=== PATIENT | female | born 1945 | race Caucasian/White ===

== ENCOUNTER 2016-03-30 15:43 | Emergency (ER) | payer MEDICARE, OTHER ==
[~2016-03-30] VITALS: Ht 170.2 cm; Wt 75.0 kg
[2016-03-30 15:47] VITALS: BP 133/81; PULSE 94; RESP 16; O2SAT 94
--- NOTE | 2016-03-30 16:02 | ED.REPORT ---
HPI-General Illness Date of Service Mar 30, 2016 ED Provider: Kenn Albright MD Pt is a 70 year old female with a history of CAD, and kidney failure who presents to the ED with concerns for a pain present in her left leg that started a couple of days ago. She reports that the pain is localized around her ;eft ankle and hamstring, she describes this as a cramping, burning pain that she is concerned is related to a possible blood clot. Pt reports that she has had bad myalgia following taking her Zetia medication in the past. She believes these symptoms are similar to the symptoms she has had in the past. She reports scattered numbness around her body, which is present constantly for the past week. Pt reports that her numbness has increased and is associated with full body weakness. She denies any fevers, chills, significant chest pain, shortness of breath, dysuria, hematuria, decreased urination, lateralizing weakness, difficulty swallowing or any other symptoms. Pt reports a resting heart rate of 122 earlier today. No established PCP. Nursing Notes Stated Complaint: POSSIBLE BLOOD CLOT Chief Complaint: General Complaint Nursing Notes Reviewed: Yes Allergies: Coded Allergies: ezetimibe (Verified Allergy, Severe, muscle cramping and spasms, 03/30/16) Dejifoi-Cww-Hji Reductase Inhibitor (Verified Allergy, Unknown, severe muscle spasm and cramping, 03/30/16) adenosine (Verified Allergy, Unknown, quites breathing, 03/30/16) Uncoded Allergies: ALL OPIOIDS (Allergy, Unknown, pt quites breathing, 03/30/16) General Time Seen by MD: 16:01 Chief Complaint Other (Lower Extremity Pain) Hx Obtained From: Patient Arrived By: Walk-in Sudden in Onset?: Yes Onset Occurred: 1 week ago Symptom Duration: Since onset Location: : Leg left Quality: Painful Severity: Current: No pain currently Severity: Maximum: Mild Similar Sx Previous: Yes Past Medical History Past Medical History Notes: Newly establishing medical care in [facility] Past Medical History CAD Kidney failure Smoking History Former Smoker Social History PT EXPRESSES EXTREME AVERSION TO CARE AT [facility] AND WOULD NOT WANT TO BE TRANSFERRED TO [facility] UNDER ANY CIRCUMSTANCES Alcohol Use: "Social" Ambulatory Status Independent Review of Systems Full Review of Systems Constitutional: Reports: Weakness - generalized, Denies: Chills, Fever, Malaise Respiratory: Denies: Non-productive cough, Shortness of breath, Wheezing Cardiovascular: Denies: Chest pain, Syncope GI: Denies: Abdominal pain, Constipation, Diarrhea, Nausea, Vomiting Female: Denies: Dysuria, Flank pain, Urinary frequency, Urinary urgency Musculoskeletal: Reports: Extremity pain, Denies: Back pain, Joint pain, Neck pain Skin: Denies Diaphoresis Neurologic: Denies: Change LOC, Dizziness, Headache, Syncope, Weakness Complete sys rev & neg: except as marked. Physical Exam Vital Signs Vital Signs Date Time Temp Pulse Resp B/P Pulse Ox O2 Delivery O2 Flow Rate FiO2 03/30/16 17:19 85 21 117/57 93 Room Air 03/30/16 15:47 36.4 94 16 133/81 94 Room Air Initial VS: Reviewed Head / Eyes: Atraumatic, Normocephalic, PERRL ENT: Mucous membranes moist, Conjunctiva normal, No scleral icterus Neck: Supple, Non-tender, Full range of motion Respiratory: Breath sounds normal, Clear to auscultation, No respiratory distress Abdomen / GI: Soft, Non-tender, No guarding, No rebound, No distention Skin: Warm, Dry, No cyanosis Psychiatric: Mood/affect normal, Behavior normal, Normal thought content General/Constitutional: Awake, Alert, No acute distress, Well appearing, Well developed, Well nourished, Cooperative Pulses in tact No swelling or erythema about the lower extremities No chords Mild calf tenderness Negative Homans sign No facilal droop Decreased senstation about the left face Motor is in tact in lower extremity, mild light touch sensation decrease Cardiovascular: Heart rate NL, Regular rhythm, No gallop, No rubs Heart Sounds / Murmur: Positive: Systolic murmur present.. (II/ - upper left sternal border) Neurologic: Oriented X3, Speech NL, No motor deficits, No sensory deficits, CN II - XII intact Interpretation & Diagnostics Lab Results Interpretation Result Diagram: 03/30/16 1640 03/30/16 1640 Test 03/30/16 16:40 03/30/16 16:52 White Blood Count 7.7th/mm3 (3.8-10.1) Red Blood Count 4.53mil/mm3 (3.90-5.20) Hemoglobin 12.8g/dL (12.0-15.6) Hematocrit 37.8% (35.0-46.0) Mean Corpuscular Volume 83.4fL (81-100) Mean Corpuscular Hemoglobin 28.3pg (27.0-35.0) Mean Corpuscular Hemoglobin Concent 33.9% (32.0-37.0) Red Cell Distribution Width 14.9% (12.3-15.4) Platelet Count 214bil/L (150-400) Neutrophils (%) (Auto) 57.7% (40-74) Lymphocytes (%) (Auto) 30.5% (14-46) Monocytes (%) (Auto) 8.3% (4-12) Eosinophils (%) (Auto) 2.5% (0-5) Basophils (%) (Auto) 0.5% (0-3) Sodium Level 140mEq/L (134-144) Potassium Level 4.2mEq/L (3.5-5.2) Chloride Level 102mEq/L (97-108) Carbon Dioxide Level 22mmol/L (18-29) Blood Urea Nitrogen 16mg/dL (8-27) Creatinine 0.72mg/dL (0.57-1.00) Estimat Glomerular Filtration Rate 114mL/min (>59) Glucose Level 155mg/dL (60-99) Calcium Level 9.2mg/dL (8.5-10.1) Magnesium Level 1.9mg/dL (1.6-2.6) Total Bilirubin 0.2mg/dL (0.0-1.2) Aspartate Amino Transf (AST/SGOT) 5U/L (0-50) Alanine Aminotransferase (ALT/SGPT) 5U/L (0-32) Alkaline Phosphatase 82U/L (25-165) Total Creatine Kinase 55U/L (21-215) Troponin T < 0.010ug/L (0.0-0.011) Total Protein 6.5g/dL (6.4-8.4) Albumin 4.1g/dL (3.4-5.0) Hold Reyes Top Tube Received (Received) Lab Results Interpretation: Venous Duplex Exam: IMPRESSION: No left lower extremity DVT. Dictated by: Bobby Landis M.D. on 03/30/2016 at 17:39 X-Ray Chest Interpretation Chest Xray Interpretation: IMPRESSION: No acute cardiopulmonary disease. Dictated by: Bobby Landis M.D. on 03/30/2016 at 16:57 View: Portable, 1 view Interpretation / Wet Read by: Interpret - Radiologist CT Head Interpretation IMPRESSION: No acute intracranial abnormalities. Dictated by: Bobby Landis M.D. on 03/30/2016 at 16:59 Interpretation / Wet Read by: Interpret - Radiologist Re-Eval/Medical Decision Source of Hx: Old records Summary of Info: Current Medications: Baby Aspirin Nitroglycerin Tramadol Brilinta Time of Eval: 18:42 Re-Evaluation/Progress Note: Pt is rechecked and informed of her labs and imaging results and the plan to discharge her at this time. She understands and agrees, all questions are addressed. Counseled Regarding: Diagnosis, Lab results, Need for follow-up, When/why to return to ED Discharge & Departure Primary Impression: Paresthesia Additional Impression: Left leg pain Disposition: Home Discharge Condition All VS Reviewed: Yes Condition: Stable Additional Instructions: Emergency Department evaluation included interview, examination, labs, ultrasound of the leg, chest x-ray, ECG, CT brain. No serious medical problems identified today. We looked for evidence of infection, stroke, abnormal blood clotting, metabolic abnormalities. Patient is reassuring. It is felt to be safe. Continue previous home care and follow-up with primary care as planned or sooner if possible. Return to ED for chest pain, shortness of breath or fevers. Scribe Attestation Portions of this note were transcribed by Gayathri Corbin. I, Dr. Albright personally performed the history, physical exam and medical decision-making; I reviewed and confirmed the accuracy of the information in the transcribed note. Signed by: Golden Ribera, 03/30/2016 1855 Kenn Albright MD Mar 30, 2016 16:02 JUNG CORBIN Mar 30, 2016 16:29
[2016-03-30 16:57] LABS: BASOPHILS % (AUTO) 0.5 % (0-3); EOSINOPHILS % (AUTO) 2.5 % (0-5); MONOCYTES % (AUTO) 8.3 % (4-12); Mean Corpuscular Hemoglobin 28.3 pg (27.0-35.0); Mean Corpuscular Volume 83.4 fL (81-100); NEUTROPHILS % (AUTO) 57.7 % (40-74); Platelet Count 214 bil/L (150-400)
--- NOTE | 2016-03-30 16:57 | DRSVH ---
PROCEDURE: X-RAY CHEST ONE VIEW, PORTABLE ([id number]) INDICATIONS: SHORTNESS OF BREATH TECHNIQUE: One view of the chest was acquired. COMPARISON: [facility], , CHEST 1 VIEW, 02/22/2016, 1:21. FINDINGS: Surgical changes and devices: None. Lungs and pleura: No pleural effusions or pneumothorax. Lungs are clear. Mediastinum: Mediastinal contours appear normal. Heart size is normal. Bones and chest wall: No suspicious bony lesions. Overlying soft tissues appear unremarkable. IMPRESSION: No acute cardiopulmonary disease. Dictated by: Bobby Landis M.D. on 03/30/2016 at 16:57 Approved by: Bobby Landis M.D. on 03/30/2016 at 16:57
--- NOTE | 2016-03-30 17:00 | DRSVH ---
PROCEDURE: CT BRAIN WITHOUT CONTRAST ([id number]) INDICATIONS: L side numbness TECHNIQUE: Noncontrast 4.5 mm thick angled axial sections acquired from the foramen magnum to the vertex, with c oronal reformats. COMPARISON: None. FINDINGS: Image quality: Excellent. CSF spaces: Basal cisterns are patent. No extra-axial fluid collections. The ventricles are symmet samir in size and shape. Brain: No intracranial bleeds or masses. There is mild cerebral volume loss for age, with resultant ventricular and sulcal prominence. There are mild periventricular and deep white matter chronic sma ll vessel ischemic changes. There is intracranial internal carotid artery atherosclerosis. Skull and face: Calvarium and visualized facial bones appear intact, without suspicious lesions. Sinuses: Visualized sinuses and mastoids are clear. IMPRESSION: No acute intracranial abnormalities. Dictated by: Bobby Landis M.D. on 03/30/2016 at 16:59 Approved by: Bobby Landis M.D. on 03/30/2016 at 17:00
[2016-03-30 17:19] VITALS: BP 117/57; PULSE 85; RESP 21; O2SAT 93
[2016-03-30 17:21] LABS: Magnesium 1.9 mg/dL (1.6-2.6)
[2016-03-30 17:36] LABS: TROPONIN T < 0.010 ug/L (0.0-0.011)
--- NOTE | 2016-03-30 17:41 | DRSVH ---
PROCEDURE: US VEINOUS LEG DUPLEX UNILATERAL, LEFT INDICATIONS: L leg swelling and pain TECHNIQUE: Real-time imaging, as well as color and pulse Doppler interrogation, were performed of the lower extr emity deep veins from the inguinal ligament to the popliteal fossa. COMPARISON: None. FINDINGS: The deep veins are normally compressible, and free of intraluminal thrombus. Color and pu lse Doppler demonstrate normal phasic intraluminal flow. There is normal augmentation response to di stal compression maneuver. IMPRESSION: No left lower extremity DVT. Dictated by: Bobby Landis M.D. on 03/30/2016 at 17:39 Approved by: Bobby Landis M.D. on 03/30/2016 at 17:39
[2016-08-13] MEDS ORDERED: AFLI2VIA INTRAVI011 (15:29)
[2016-08-13] MEDS ORDERED: ASPI-973 PO (15:29)
[2016-08-13] MEDS ORDERED: VIT1CAPS46 PO (15:29)
== END 2016-03-30 19:26 | disposition home or self-care (01) ==
LOC: SED 15:43
DX: R20.2 Paresthesia of skin (principal); M79.605 Pain in left leg; M62.81 Muscle weakness (generalized); I25.10 Atherosclerotic heart disease of native coronary artery without angina pectoris; Z95.818 Presence of other cardiac implants and grafts; Z87.448 Personal history of other diseases of urinary system; Z87.891 Personal history of nicotine dependence; Z79.82 Long term (current) use of aspirin; Z88.5 Allergy status to narcotic agent; Z88.8 Allergy status to other drugs, medicaments and biological substances

== ENCOUNTER 2016-05-17 15:29 | Emergency (ER) | payer OTHER, MEDICARE ==
[~2016-05-17] VITALS: Ht 172.7 cm; Wt 79.5 kg
[2016-05-17 15:45] VITALS: BP 121/78; PULSE 71; RESP 18; O2SAT 99
--- NOTE | 2016-05-17 16:16 | ED.REPORT ---
HPI-General Illness Date of Service May 17, 2016 ED Provider: Kenn Albright MD The patient is a 70 year old female history of CAD and cardiac stents who presents to the ED due to intermittent chest pain for the past 4 months. Today' s pain is different, she is experiencing sharp pains all over her body and both sides of her chest. Pt reports the pain is getting worse and for longer periods of time. C/o associated generalized weakness, dizziness, and exhaustion. She fell twice yesterday and was unable to push herself back up. Pt is hardly able to sit up by herself in bed. She says she thinks it is reactions to weakness. She was last seen at the ED 03/30/16 for similar symptoms at which time no acute problems were found. Pt denies fevers. She was sent to the ED today from her PCP for lab work. Her PCP is Michelle Galo, she had an appointment last Friday. Nursing Notes Stated Complaint: LAB WORK Chief Complaint: General Complaint Nursing Notes Reviewed: Yes Allergies: Coded Allergies: ezetimibe (Verified Allergy, Severe, muscle cramping and spasms, 05/17/16) Witladl-Ahr-Bhk Reductase Inhibitor (Verified Allergy, Unknown, severe muscle spasm and cramping, 05/17/16) adenosine (Verified Allergy, Unknown, quites breathing, 05/17/16) Uncoded Allergies: ALL OPIOIDS (Allergy, Unknown, pt quites breathing, 03/30/16) General Time Seen by MD: 16:12 Chief Complaint Chest pain Hx Obtained From: Patient Arrived By: Walk-in Sudden in Onset?: Yes Onset Occurred: 5 - 8 hours ago Symptom Duration: Since onset Location: : Chest Severity: Current: Mild Recent Healthcare: Recent doctor visit Similar Sx Previous: Yes Past Medical History Past Medical History Notes: Newly establishing medical care in [facility] Past Medical History CAD Kidney failure Smoking History Former Smoker Social History PT EXPRESSES EXTREME AVERSION TO CARE AT [facility] AND WOULD NOT WANT TO BE TRANSFERRED TO [facility] UNDER ANY CIRCUMSTANCES Alcohol Use: "Social" Ambulatory Status Independent Review of Systems Full Review of Systems Constitutional: Denies: Fever Cardiovascular: Reports: Chest pain Neurologic: Reports: Dizziness, Lightheaded, Problem walking, Weakness Complete sys rev & neg: except as marked. Physical Exam Vital Signs Vital Signs Date Time Temp Pulse Resp B/P Pulse Ox O2 Delivery O2 Flow Rate FiO2 3/17/17 18:52 68 17 139/73 95 Room Air 05/17/16 16:48 72 15 125/72 98 Room Air 05/17/16 15:45 36.6 71 18 121/78 99 Room Air Initial VS: Reviewed Head / Eyes: Atraumatic, Normocephalic, PERRL ENT: Mucous membranes moist, Conjunctiva normal, No scleral icterus Neck: Supple, Non-tender, Full range of motion Respiratory: Breath sounds normal, Clear to auscultation, No respiratory distress Abdomen / GI: Soft, Non-tender, No guarding, No rebound, No distention Extremities: Vascular intact, Neuro intact, No swelling, No tenderness Skin: Warm, Dry, No cyanosis Psychiatric: Mood/affect normal, Behavior normal, Normal thought content General/Constitutional: Awake, Alert, No acute distress, Cooperative Interpretation & Diagnostics Lab Results Interpretation Result Diagram: 05/17/16 1617 05/17/16 1617 Test 05/17/16 16:17 White Blood Count 8.3th/mm3 (3.8-10.1) Red Blood Count 4.91mil/mm3 (3.90-5.20) Hemoglobin 13.8g/dL (12.0-15.6) Hematocrit 41.1% (35.0-46.0) Mean Corpuscular Volume 83.7fL (81-100) Mean Corpuscular Hemoglobin 28.1pg (27.0-35.0) Mean Corpuscular Hemoglobin Concent 33.6% (32.0-37.0) Red Cell Distribution Width 14.5% (12.3-15.4) Platelet Count 209bil/L (150-400) Neutrophils (%) (Auto) 58.3% (40-74) Lymphocytes (%) (Auto) 33.3% (14-46) Monocytes (%) (Auto) 6.8% (4-12) Eosinophils (%) (Auto) 0.8% (0-5) Basophils (%) (Auto) 0.6% (0-3) D-Dimer < 0.5mg/L (<0.50) Sodium Level 138mEq/L (134-144) Potassium Level 4.3mEq/L (3.5-5.2) Chloride Level 101mEq/L (97-108) Carbon Dioxide Level 22mmol/L (18-29) Blood Urea Nitrogen 9mg/dL (8-27) Creatinine 0.81mg/dL (0.57-1.00) Estimat Glomerular Filtration Rate 100mL/min (>59) Glucose Level 106mg/dL (60-99) Calcium Level 9.5mg/dL (8.5-10.1) Magnesium Level 2.0mg/dL (1.6-2.6) Total Bilirubin 0.7mg/dL (0.0-1.2) Aspartate Amino Transf (AST/SGOT) 19U/L (0-50) Alanine Aminotransferase (ALT/SGPT) 12U/L (0-32) Alkaline Phosphatase 69U/L (25-165) Troponin T < 0.010ug/L (0.0-0.011) Total Protein 7.0g/dL (6.4-8.4) Albumin 4.6g/dL (3.4-5.0) Thyroid Stimulating Hormone (TSH) 1.040uIU/mL (0.450-4.500) Hold Reyes Top Tube Received (Received) ECG Interpretation Time: 15:58 Interpreted by: ED physician Normal ECG Interpretation: Normal sinus rhythm (62) X-Ray Chest Interpretation Chest Xray Interpretation: IMPRESSION: No acute process. Dictated by: Nadeem Mcdaniel M.D. on 05/17/2016 at 16:32 Approved by: Nadeem Mcdaniel M.D. on 05/17/2016 at 16:32 View: Portable Interpretation / Wet Read by: Interpret - Radiologist Re-Eval/Medical Decision Time of Eval: 19:19 Patient Status: Pain improved Re-Evaluation/Progress Note: Pt rechecked. Informed pt of normal lab results and chest x-ray. F/U and RTER warnings given. Pt understands and agrees with plan. Counseled Regarding: Diagnosis, Lab results, Need for follow-up, When/why to return to ED Discharge & Departure Primary Impression: Non-cardiac chest pain Disposition: Home Discharge Condition All VS Reviewed: Yes Condition: Stable Additional Instructions: Emergency Department evaluation today included interview, examination, labs, chest x-ray, and ECG. There are no dangerous heart or lung issues that are causing your symptoms. No evidence for pulmonary embolism, abnormal blood clotting, or pneumonia. Make sure you take your aspirin every day. Follow up with your primary care physician for further evaluation. Take an aspirin daily. Return to the Emergency Department for any new or worsening symptoms. Referrals: [facility] Scribe Attestation Portion of this note were transcribed by Aby Pena. I, Dr. Albright, personally performed the history, physical exam, and medical decision-making: I reviewed and confirmed the accuracy for the information in the transcribed note. Signed by: iman Vences, 05/17/16 2000 copies to: [facility] Kenn Albright MD May 17, 2016 16:16 Ayb Pena May 17, 2016 16:28
[2016-05-17 16:27] LABS: BASOPHILS % (AUTO) 0.6 % (0-3); EOSINOPHILS % (AUTO) 0.8 % (0-5); MONOCYTES % (AUTO) 6.8 % (4-12); Mean Corpuscular Hemoglobin 28.1 pg (27.0-35.0); Mean Corpuscular Volume 83.7 fL (81-100); NEUTROPHILS % (AUTO) 58.3 % (40-74); Platelet Count 209 bil/L (150-400)
--- NOTE | 2016-05-17 16:34 | DRSVH ---
PROCEDURE: X-RAY CHEST ONE VIEW, PORTABLE ([id number]) INDICATIONS: CP TECHNIQUE: One view of the chest was acquired. COMPARISON: [facility], CR, XR CHEST 1VW (PORTABLE), 03/30/2016, 16:13. FINDINGS: Surgical changes and devices: None. Lungs and pleura: No pleural effusions or pneumothorax. Lungs are clear. Mediastinum: Mediastinal contours appear normal. Heart size is normal. Bones and chest wall: No suspicious bony lesions. Overlying soft tissues appear unremarkable. IMPRESSION: No acute process. Dictated by: Nadeem Mcdaniel M.D. on 05/17/2016 at 16:32 Approved by: Nadeem Mcdaniel M.D. on 05/17/2016 at 16:32
[2016-05-17 16:46] LABS: TROPONIN T < 0.010 ug/L (0.0-0.011)
[2016-05-17 16:48] VITALS: BP 125/72; PULSE 72; RESP 15; O2SAT 98
[2016-05-17 18:52] VITALS: BP 139/73; PULSE 68; RESP 17; O2SAT 95
[2016-08-13] MEDS ORDERED: ASPI-973 PO (15:29)
[2016-08-13] MEDS ORDERED: VIT1CAPS46 PO (15:29)
[2016-08-13] MEDS ORDERED: AFLI2VIA INTRAVI011 (15:29)
== END 2016-05-17 19:31 | disposition home or self-care (01) ==
LOC: SED 15:29
DX: R07.89 Other chest pain (principal); R53.1 Weakness; R42 Dizziness and giddiness; I25.10 Atherosclerotic heart disease of native coronary artery without angina pectoris; Z87.891 Personal history of nicotine dependence; Z88.8 Allergy status to other drugs, medicaments and biological substances

== ENCOUNTER 2016-08-15 09:48 | Day surgery (SDC) | payer OTHER ==
[~2016-08-15] VITALS: Ht 170.2 cm; Wt 80.3 kg
[~2016-08-15 09:48] MED LIST: 0.9% Sodium Chloride 1,000 ML IV SCH; AFLI2VIA INTRAVI011; ASPI-973 PO; Sodium Chloride LOK Flush 10 mL Syringe IV PRN; VIT1CAPS46 PO; fentaNYL-PF 50 mCg/mL 2 mL Inj IVPUSH PRN
[2016-08-15 09:58] VITALS: BP 122/76; PULSE 77; RESP 14; O2SAT 95
[2016-08-15 11:52] VITALS: BP 110/77; PULSE 75; RESP 14; O2SAT 97
[2016-08-15 12:00] VITALS: BP 109/76; PULSE 66; RESP 16; O2SAT 96
--- NOTE | 2016-08-15 13:53 | ENDO ---
[address] [address] ENDOSCOPY PROCEDURE PATIENT: ANASTASIA MORA : 1945 MR#: [id number] ADMIT: 08/15/2016 JOB ID: [id number] DATE: 08/15/2016 PROCEDURE: Colonoscopy. INDICATION: Patient with a history of colon polyps which were adenomatous. Patient's ASA classification is two. Mallampati score is two. MEDICATIONS: Versed 1 mg, fentanyl 25 mcg. INSTRUMENT USED: PCF H 180 AL. PREPARATION QUALITY: Good. PROCEDURE DETAILS: After informed consent was obtained, the patient was brought into the GI suite, where she was placed on oxygen via nasal cannula and monitored with continuous pulse oximeter, telemetry, and blood pressure monitoring. A time-out was performed, then she was placed in the left lateral decubitus position and medications were administered for sedation. Digital rectal exam was performed, which was unremarkable. The colonoscope was then inserted into the rectum and advanced under direct visualization to the cecum, which identified by the presence of the ileocecal valve and appendiceal orifice. Once the cecum was reached the colonoscope was withdrawn back into the rectum as the mucosa and lumen were examined. In the rectum, retroflexion was performed. Following retroflexion, the remaining air in the rectum was suctioned and procedure was completed. FINDINGS: 1. A diminutive polyp was seen in the ascending colon that was removed with cold biopsy forceps. 2. Scattered diverticula were seen throughout the left side of the colon. IMPRESSION: 1. Ascending colon polyp. 2. Left-sided diverticulosis. RECOMMENDATIONS: 1. Repeat colonoscopy in five years. 2. Fiber rich diet. COMPLICATIONS: None. ESTIMATED BLOOD LOSS: Less than 5 mL.
--- NOTE | 2016-08-16 13:21 | PATH ---
SURGICAL PATHOLOGY Attending Physician:Gloria Nelson CASE STATUS: Signed Out PATIENT NAME: ANASTASIA OMRA PID: [id number] : 1945 DATE COLLECTED:08/15/2016 19:29 SPECIMEN: Colon, Polyp CLINICAL HISTORY: 1). ASCENDING POLYP FINAL DIAGNOSIS: 1.ASCENDING COLON POLYP: TUBULAR ADENOMA. ICD10 D12.2 GROSS DESCRIPTION: Received in formalin, labeled with the patient' s name and "ascending polyp", is one fragment of desir, soft tissue measuring 0.2 x 0.1 x 0.1 cm. The fragment is totally submitted in one cassette. ([id number]) MICRO DESCRIPTION: See diagnosis. ICD-9 CODES: CPT CODES: 1: 40430 Electronically Signed Out Kenn Melendez MD [facility] Pathology [facility] [address], [place] [address] Technical component performed at [facility], [facility] [address], [place], [address]
== END 2016-08-15 23:59 | disposition home or self-care (01) ==
LOC: END 09:48
PROVIDERS: ATTEND Internal Medicine Gastroenterology
DX: Z12.11 Encounter for screening for malignant neoplasm of colon (principal); Z86.010 Personal history of colon polyps; D12.2 Benign neoplasm of ascending colon; K57.30 Diverticulosis of large intestine without perforation or abscess without bleeding; I25.10 Atherosclerotic heart disease of native coronary artery without angina pectoris; Z95.5 Presence of coronary angioplasty implant and graft; Z79.82 Long term (current) use of aspirin
CPT/HCPCS: 45380; G0500; J2250; J3010; J7030